=== PATIENT | female | born 1960 | race Two or more races ===

== ENCOUNTER 2023-11-13 10:25 | Inpatient (IN) | payer BC, OTHER ==
[2023-11-13] MEDS ORDERED: FAMOTIDINE 20 MG/50 ML IVPB 20 MG/50 ML MG IVPB ONE (11:48)
[2023-11-13] MEDS ORDERED: ACETAMINOPHEN INJECTION 100 ML IVPB ONE (11:48)
[2023-11-13] MEDS: ACETAMINOPHEN 1000 MG/100 ML BAG IVPB ONE (12:11)
[2023-11-13] MEDS: FAMOTIDINE 20 MG/50 ML IVPB 20 MG/50 ML MG IVPB ONE (12:11)
[2023-11-13 12:16] LABS: EPI CELLS 28 /uL (0-25.1); HYALINE CASTS 21 /uL (0-3.1); URINE APPEARANCE CLEAR; URINE BACTERIA 12 /uL (0-1359); URINE BILIRUBIN NEGATIVE (NEGATIVE); URINE COLOR DK YELLOW; URINE GLUCOSE (UA) NEGATIVE (NEGATIVE); URINE KETONE 3+ (NEGATIVE); URINE LEUK ESTERASE NEGATIVE (NEGATIVE); URINE NITRITE NEGATIVE (NEGATIVE); URINE PROTEIN 2+ (NEGATIVE); URINE RBC 31 /uL (0-23.9); URINE WBC 23 /uL (0-25.8)
[2023-11-13 12:24] LABS: BASO % 0.7 % (0-2.0); HEMATOCRIT 43.7 % (32.4-45.2); HEMOGLOBIN 15.2 GM/dL (10.7-15.3); LYMPH % 20.1 % (8-40); MCH 29.9 pg (25.7-33.7); MCHC 34.9 g/dl (32.0-36.0); MEAN CELL VOLUME 85.9 fl (80-96); MEAN PLT VOLUME 8.1 fl (7.5-11.1); MONO % 6.2 % (3.8-10.2); PLATELET COUNT 295 10^3/uL (134-434); RBC 5.08 M/mm3 (3.60-5.2); RDW 13.5 % (11.6-15.6); WHITE BLOOD COUNT 9.5 K/mm3 (4.0-10.0)
[2023-11-13] MEDS: SODIUM CHLORIDE 0.9% 500 ML INFUS.BAG IV ONE (12:27)
[2023-11-13 12:28] LABS: POTASSIUM 3.3 mmol/L (3.5-5.1)
[2023-11-13 12:30] LABS: CALCIUM 9.7 mg/dL (8.5-10.1)
[2023-11-13 12:31] LABS: ALBUMIN 4.1 g/dl (3.4-5.0); BLOOD UREA NITROGEN 20.9 mg/dL (7-18); MAGNESIUM 1.7 mg/dL (1.8-2.4)
[2023-11-13 12:33] LABS: CREATININE 0.7 mg/dL (0.55-1.3); PHOSPHOROUS 4.2 mg/dL (2.5-4.9)
[2023-11-13 12:35] LABS: BILIRUBIN,TOTAL 1.2 mg/dL (0.2-1); TOT PROT 7.8 g/dl (6.4-8.2)
[2023-11-13] MEDS ORDERED: MAGNESIUM 1GM/D5W - 1 GM/100 ML IVPB IVPB ONE (13:05)
[2023-11-13] MEDS: MAGNESIUM 1GM/D5W - 1 GM/100 ML IVPB IVPB ONE (14:16)
[2023-11-13] MEDS ORDERED: KCL 10 MEQ IVPB 10 MEQ/100 ML INFUS.BAG IVPB ONE (14:17)
[2023-11-13] MEDS: KCL 10 MEQ IVPB 10 MEQ/100 ML INFUS.BAG IVPB SCH (14:24)
[2023-11-13] MEDS ORDERED: POTASSIUM CHLORIDE ORAL LIQUID 20 MEQ/15 ML ONE (16:48)
[2023-11-13] MEDS: POTASSIUM CHLORIDE ORAL LIQUID 20 MEQ/15 ML PO ONE (16:54)
[2023-11-13] MEDS ORDERED: TRIMETHOBENZAMIDE HCL 200MG/2ML INJ IM ONE (17:02)
[2023-11-13] MEDS: TRIMETHOBENZAMIDE HCL 200MG/2ML INJ IM ONE (17:07)
[2023-11-13] MEDS ORDERED: METOCLOPRAMIDE HCL INJECTION 10 MG/2 ML VIAL IVPUSH PRN (18:23)
[2023-11-13] MEDS ORDERED: METOCLOPRAMIDE HCL INJECTION 10 MG/2 ML VIAL IVPUSH SCH (18:30)
[2023-11-13] MEDS ORDERED: PANTOPRAZOLE SODIUM 40 MG VIAL ONE (18:39)
[2023-11-13] MEDS: LACTATED RINGERS SOLUTION 1,000 ML/1,000 ML INFUS.BAG IV SCH (18:56)
[2023-11-13] MEDS: PANTOPRAZOLE SODIUM 40 MG VIAL IVPUSH SCH (18:56)
[2023-11-13] MEDS: ACETAMINOPHEN 1000 MG/100 ML BAG IVPB PRN (20:46)
[2023-11-13 22:19] VITALS: BMI 25.0
[2023-11-14 09:44] LABS: BASO % 0.7 % (0-2.0); EOS % 7.4 % (0-4.5); HEMOGLOBIN 13.2 GM/dL (10.7-15.3); LYMPH % 30.1 % (8-40); MCH 29.8 pg (25.7-33.7); MCHC 34.8 g/dl (32.0-36.0); MEAN CELL VOLUME 85.8 fl (80-96); MEAN PLT VOLUME 8.1 fl (7.5-11.1); MONO % 7.7 % (3.8-10.2); NEUT % 54.1 % (42.8-82.8); PLATELET COUNT 262 10^3/uL (134-434); RBC 4.42 M/mm3 (3.60-5.2); WHITE BLOOD COUNT 6.6 K/mm3 (4.0-10.0)
[2023-11-14 09:56] LABS: POTASSIUM 4.3 mmol/L (3.5-5.1)
[2023-11-14] MEDS ORDERED: ENOXAPARIN NA (PORCINE) 40 MG/0.4 ML DISP.SYRIN SQ SCH (10:00)
[2023-11-14 10:08] LABS: CALCIUM 8.5 mg/dL (8.5-10.1)
[2023-11-14 10:09] LABS: MAGNESIUM 1.6 mg/dL (1.8-2.4)
[2023-11-14 10:11] LABS: BILIRUBIN,TOTAL 0.9 mg/dL (0.2-1); PHOSPHOROUS 2.3 mg/dL (2.5-4.9)
[2023-11-14 10:12] LABS: BILIRUBIN,DIRECT 0.3 mg/dL (0.0-0.2); CREATININE 0.4 mg/dL (0.55-1.3)
[2023-11-14 10:23] LABS: ALBUMIN 3.2 g/dl (3.4-5.0); TOT PROT 5.8 g/dl (6.4-8.2)
[2023-11-14] MEDS: DEXTROSE 5%-NORMAL SALINE 1,000 ML IV SCH ×2 (13:35→18:44)
[2023-11-14] MEDS: MAGNESIUM OXIDE 400 MG TABLET (FP) PO ONE (18:44)
[2023-11-14] MEDS: POLYETHYLENE GLYCOL (HEALTHYLAX) 3350 17 GM PACKET PO SCH (18:45)
[2023-11-15 09:46] LABS: BASO % 0.6 % (0-2.0); EOS % 7.6 % (0-4.5); HEMATOCRIT 38.6 % (32.4-45.2); HEMOGLOBIN 13.5 GM/dL (10.7-15.3); LYMPH % 30.5 % (8-40); MCH 29.6 pg (25.7-33.7); MEAN CELL VOLUME 84.5 fl (80-96); MEAN PLT VOLUME 7.5 fl (7.5-11.1); MONO % 7.5 % (3.8-10.2); NEUT % 53.8 % (42.8-82.8); PLATELET COUNT 270 10^3/uL (134-434); RBC 4.57 M/mm3 (3.60-5.2); RDW 13.9 % (11.6-15.6); WHITE BLOOD COUNT 6.1 K/mm3 (4.0-10.0)
[2023-11-15] MEDS: ENOXAPARIN NA (PORCINE) 40 MG/0.4 ML DISP.SYRIN SQ SCH (09:56)
[2023-11-15] MEDS: ACETAMINOPHEN 1000 MG/100 ML BAG IVPB PRN (09:57)
[2023-11-15] MEDS: CLOPIDOGREL BISULFATE 75 MG TABLET (FP) PO SCH (09:58)
[2023-11-15 10:06] LABS: POTASSIUM 3.9 mmol/L (3.5-5.1)
[2023-11-15 10:10] LABS: ALBUMIN 3.4 g/dl (3.4-5.0); BLOOD UREA NITROGEN 5.8 mg/dL (7-18); CALCIUM 8.5 mg/dL (8.5-10.1); MAGNESIUM 1.5 mg/dL (1.8-2.4)
[2023-11-15 10:13] LABS: CREATININE 0.4 mg/dL (0.55-1.3)
[2023-11-15 10:14] LABS: BILIRUBIN,TOTAL 0.7 mg/dL (0.2-1); TOT PROT 6.1 g/dl (6.4-8.2)
[2023-11-15] MEDS: MAGNESIUM SULF 50% (8.12 MEQ/2 ML-1 GM VIAL) IVPB ONE (18:38)
[2023-11-15] MEDS: MAG HYDROX/AL HYDROX/SIMETH 30 ML UNIT-DOSE CUP PO ONE (18:51)
[2023-11-16] MEDS: ACETAMINOPHEN 1000 MG/100 ML BAG IVPB ONE (04:47)
[2023-11-16 09:39] LABS: BASO % 0.4 % (0-2.0); EOS % 6.1 % (0-4.5); HEMATOCRIT 40.9 % (32.4-45.2); HEMOGLOBIN 13.9 GM/dL (10.7-15.3); LYMPH % 22.8 % (8-40); MCH 29.2 pg (25.7-33.7); MEAN PLT VOLUME 7.8 fl (7.5-11.1); MONO % 6.3 % (3.8-10.2); NEUT % 64.4 % (42.8-82.8); PLATELET COUNT 266 10^3/uL (134-434); RBC 4.75 M/mm3 (3.60-5.2); RDW 13.6 % (11.6-15.6); WHITE BLOOD COUNT 7.5 K/mm3 (4.0-10.0)
[2023-11-16 09:44] LABS: POTASSIUM 3.7 mmol/L (3.5-5.1)
[2023-11-16 09:48] LABS: CALCIUM 8.4 mg/dL (8.5-10.1)
[2023-11-16 09:49] LABS: ALBUMIN 3.4 g/dl (3.4-5.0); BLOOD UREA NITROGEN 4.6 mg/dL (7-18)
[2023-11-16 09:52] LABS: CREATININE 0.4 mg/dL (0.55-1.3); PHOSPHOROUS 2.5 mg/dL (2.5-4.9)
[2023-11-16 09:54] LABS: BILIRUBIN,TOTAL 0.6 mg/dL (0.2-1); TOT PROT 6.4 g/dl (6.4-8.2)
[2023-11-16] MEDS: LISINOPRIL 5 MG TABLET PO SCH (10:11)
[2023-11-16] MEDS: MAG HYDROX/AL HYDROX/SIMETH 30 ML UNIT-DOSE CUP PO PRN (16:19)
[2023-11-16] MEDS: ACETAMINOPHEN 1000 MG/100 ML BAG IVPB PRN (19:51)
[2023-11-17 08:03] LABS: HEMATOCRIT 39.3 % (32.4-45.2); HEMOGLOBIN 13.4 GM/dL (10.7-15.3); MCH 29.2 pg (25.7-33.7); PLATELET COUNT 264 10^3/uL (134-434); RBC 4.57 M/mm3 (3.60-5.2); RDW 13.9 % (11.6-15.6); WHITE BLOOD COUNT 6.2 K/mm3 (4.0-10.0)
[2023-11-17 08:21] LABS: POTASSIUM 3.6 mmol/L (3.5-5.1)
[2023-11-17 08:27] LABS: CALCIUM 8.7 mg/dL (8.5-10.1)
[2023-11-17 08:28] LABS: MAGNESIUM 2.2 mg/dL (1.8-2.4)
[2023-11-17 08:31] LABS: CREATININE 0.6 mg/dL (0.55-1.3); PHOSPHOROUS 2.6 mg/dL (2.5-4.9)
[2023-11-17 08:33] LABS: INR 1.5 (0.83-1.09); PROTHROMBIN TIME (PATIENT) 16.7 SEC (9.7-13.0)
[2023-11-17] MEDS: MELATONIN 5 MG TABLETS PO SCH (21:07)
[2023-11-18 09:30] LABS: HEMATOCRIT 38.4 % (32.4-45.2); HEMOGLOBIN 13.4 GM/dL (10.7-15.3); MCH 29.8 pg (25.7-33.7); MCHC 34.9 g/dl (32.0-36.0); MEAN CELL VOLUME 85.3 fl (80-96); MEAN PLT VOLUME 7.9 fl (7.5-11.1); PLATELET COUNT 272 10^3/uL (134-434); RDW 14.2 % (11.6-15.6); WHITE BLOOD COUNT 6.5 K/mm3 (4.0-10.0)
[2023-11-18 09:56] LABS: CHLORIDE 109 mmol/L (98-107); SODIUM 141 mmol/L (136-145)
[2023-11-18 10:01] LABS: POTASSIUM 2.8 mmol/L (3.5-5.1)
[2023-11-18 10:11] LABS: CALCIUM 8.5 mg/dL (8.5-10.1)
[2023-11-18 10:12] LABS: ANION GAP 7 mmol/L (4-13); BLOOD UREA NITROGEN 7.9 mg/dL (7-18); CO2 25 mmol/L (21-32); GLUCOSE,RANDOM 140 mg/dL (74-106)
[2023-11-18 10:15] LABS: CREATININE 0.3 mg/dL (0.55-1.3); PHOSPHOROUS 2.5 mg/dL (2.5-4.9)
[2023-11-18] MEDS ORDERED: POTASSIUM CHLORIDE ORAL LIQUID 20 MEQ/15 ML NGT SCH (22:00)
[2023-11-18] MEDS: D5-1/2NS+20 MEQ KCL - 20 MEQ/1,000 ML INFUS.BAG IV SCH (22:16)
[2023-11-19 09:15] LABS: POTASSIUM 3.6 mmol/L (3.5-5.1)
[2023-11-19 09:17] LABS: CALCIUM 8.1 mg/dL (8.5-10.1)
[2023-11-19 09:18] LABS: BLOOD UREA NITROGEN 11.1 mg/dL (7-18); MAGNESIUM 1.7 mg/dL (1.8-2.4)
[2023-11-19 09:19] LABS: HEMATOCRIT 37.8 % (32.4-45.2); HEMOGLOBIN 13.3 GM/dL (10.7-15.3); MCH 29.8 pg (25.7-33.7); MCHC 35.2 g/dl (32.0-36.0); MEAN CELL VOLUME 84.7 fl (80-96); MEAN PLT VOLUME 8.2 fl (7.5-11.1); PLATELET COUNT 261 10^3/uL (134-434); RBC 4.47 M/mm3 (3.60-5.2); RDW 14.2 % (11.6-15.6); WHITE BLOOD COUNT 6.5 K/mm3 (4.0-10.0)
[2023-11-19 09:21] LABS: CREATININE 0.4 mg/dL (0.55-1.3); PHOSPHOROUS 2.2 mg/dL (2.5-4.9)
[2023-11-19] MEDS: MAGNESIUM SULF 50% (8.12 MEQ/2 ML-1 GM VIAL) IVPB ONE (10:48)
[2023-11-19] MEDS: DEXTROSE 5%-0.45% SALINE 1,000 ML IV SCH (10:49)
[2023-11-19] MEDS ORDERED: ACETAMINOPHEN 1000 MG/100 ML BAG IVPB PRN (11:05)
[2023-11-19] MEDS: POTASSIUM PHOSPHATE 15 MM in SODIUM CHLORIDE 250 ML IVPB ONE (11:57)
[2023-11-20 10:18] LABS: HEMATOCRIT 38.5 % (32.4-45.2); HEMOGLOBIN 13.7 GM/dL (10.7-15.3); MCH 30.1 pg (25.7-33.7); MCHC 35.5 g/dl (32.0-36.0); MEAN CELL VOLUME 84.8 fl (80-96); MEAN PLT VOLUME 7.6 fl (7.5-11.1); PLATELET COUNT 311 10^3/uL (134-434); RBC 4.55 M/mm3 (3.60-5.2); RDW 14.2 % (11.6-15.6); WHITE BLOOD COUNT 6.2 K/mm3 (4.0-10.0)
[2023-11-20 10:21] LABS: POTASSIUM 3.1 mmol/L (3.5-5.1)
[2023-11-20 10:23] LABS: CALCIUM 8.6 mg/dL (8.5-10.1)
[2023-11-20 10:24] LABS: BLOOD UREA NITROGEN 10.4 mg/dL (7-18); MAGNESIUM 1.8 mg/dL (1.8-2.4)
[2023-11-20 10:27] LABS: CREATININE 0.4 mg/dL (0.55-1.3); PHOSPHOROUS 3.2 mg/dL (2.5-4.9)
[2023-11-20] MEDS: AMINO ACIDS 4.25%/D5W 1,000 ML IV SCH (10:40)
[2023-11-20] MEDS: ACETAMINOPHEN 1000 MG/100 ML BAG IVPB PRN (17:04)
[2023-11-21] MEDS ORDERED: ONDANSETRON 4 MG/2 ML VIAL IVPUSH PRN (10:22)
[2023-11-21 10:48] LABS: HEMATOCRIT 40.6 % (32.4-45.2); HEMOGLOBIN 14.4 GM/dL (10.7-15.3); MCH 29.9 pg (25.7-33.7); MCHC 35.5 g/dl (32.0-36.0); MEAN CELL VOLUME 84.2 fl (80-96); MEAN PLT VOLUME 7.7 fl (7.5-11.1); PLATELET COUNT 368 10^3/uL (134-434); RBC 4.82 M/mm3 (3.60-5.2); RDW 14.2 % (11.6-15.6); WHITE BLOOD COUNT 6.7 K/mm3 (4.0-10.0)
[2023-11-21 10:50] LABS: INR 1.73 (0.83-1.09); PROTHROMBIN TIME (PATIENT) 19.2 SEC (9.7-13.0)
[2023-11-21 10:59] LABS: CHLORIDE 101 mmol/L (98-107); SODIUM 138 mmol/L (136-145)
[2023-11-21 11:01] LABS: POTASSIUM 2.9 mmol/L (3.5-5.1)
[2023-11-21 11:02] LABS: CALCIUM 9.2 mg/dL (8.5-10.1)
[2023-11-21 11:03] LABS: ANION GAP 8 mmol/L (4-13); CO2 29 mmol/L (21-32); GLUCOSE,RANDOM 131 mg/dL (74-106); MAGNESIUM 1.6 mg/dL (1.8-2.4)
[2023-11-21 11:06] LABS: CREATININE 0.5 mg/dL (0.55-1.3); PHOSPHOROUS 3.8 mg/dL (2.5-4.9)
[2023-11-21] MEDS: KCL 10 MEQ IVPB 10 MEQ/100 ML INFUS.BAG IVPB SCH (12:33)
[2023-11-21] MEDS: POTASSIUM CHLORIDE ORAL LIQUID 20 MEQ/15 ML PO SCH (12:34)
[2023-11-21] MEDS: MAGNESIUM 2GM/50ML STERILE WATER IVPB IVPB ONE (12:34)
[2023-11-21 16:31] VITALS: RESP 18
[2023-11-22 09:46] LABS: POTASSIUM 3.3 mmol/L (3.5-5.1)
[2023-11-22 09:51] LABS: BLOOD UREA NITROGEN 15.8 mg/dL (7-18); CALCIUM 8.5 mg/dL (8.5-10.1); MAGNESIUM 1.8 mg/dL (1.8-2.4)
[2023-11-22 09:54] LABS: CREATININE 0.4 mg/dL (0.55-1.3); PHOSPHOROUS 2.8 mg/dL (2.5-4.9)
[2023-11-22 14:50] VITALS: BP 119/53; PULSE 79; TEMP 97.5
== END 2023-11-22 17:00 | disposition short-term general hospital (02) | DRG 382 ==
LOC: JER 10:25 → JERBED 17:21 → J5S 22:05
PROVIDERS: ADMIT Student in an Organized Health Care Education/Training Program
PROC: 0DB98ZX Excision of Duodenum, Via Natural or Artificial Opening Endoscopic, Diagnostic (ICD-10-PCS; principal; 2023-11-18 12:30)
DX: K31.1 Adult hypertrophic pyloric stenosis (principal); K29.80 Duodenitis without bleeding; I25.10 Atherosclerotic heart disease of native coronary artery without angina pectoris; E11.9 Type 2 diabetes mellitus without complications; I10 Essential (primary) hypertension
CPT/HCPCS: 0241U-QW; 36415; 71045-TC-FY; 74177-TC; 74240-TC-FY; 80048; 80053; 80061; 81003; 82248; 82962; 83036; 83605; 83690; 83735; 83880; 84100; 84443; 84484; 85025; 85027; 85610; 86850; 86900; 86901; 87086; 87635; 88305-TC; 88341-TC; 93005; 93010; 93306-TC; 93308; 99285-25; J0131